=== PATIENT | male | born 1975 | race Caucasian/White ===

== ENCOUNTER 2016-09-08 21:31 | Emergency (ER) | payer OTHER | END 2016-09-08 22:42 | disposition home or self-care (01) | LOC: ER1 21:31 | DX: L02.415 Cutaneous abscess of right lower limb (principal); I10 Essential (primary) hypertension; J44.9 Chronic obstructive pulmonary disease, unspecified; F17.200 Nicotine dependence, unspecified, uncomplicated; Z79.899 Other long term (current) drug therapy | CPT/HCPCS: 10061; 87070; 87205; 99283 ==

== ENCOUNTER → 2020-06-15 | Outpatient (CLI) | payer BC, OTHER ==
[~2020-06-15] MED LIST: CEFUROXIME500 MG PO; NORCO 5-325 TA1 EACH PO
== END ==
LOC: KOH-I 11:10
DX: R04.2 Hemoptysis (principal)
CPT/HCPCS: 71046